=== PATIENT | male | born 1950 | race Two or more races ===

== ENCOUNTER → 2017-08-15 09:57 | Outpatient (CLI) | payer OTHER | END | disposition home or self-care (01) | LOC: LAB 09:57 | DX: N40.0 Benign prostatic hyperplasia without lower urinary tract symptoms (principal); F52.21 Male erectile disorder; E29.0 Testicular hyperfunction; E11.65 Type 2 diabetes mellitus with hyperglycemia ==

== ENCOUNTER 2018-07-17 12:18 | Outpatient (CLI) | payer OTHER | END 2018-07-17 12:29 | disposition home or self-care (01) | LOC: LAB 12:18 | DX: E11.65 Type 2 diabetes mellitus with hyperglycemia (principal); E78.00 Pure hypercholesterolemia, unspecified; N40.0 Benign prostatic hyperplasia without lower urinary tract symptoms; F52.21 Male erectile disorder; E29.1 Testicular hypofunction; E22.1 Hyperprolactinemia; I11.9 Hypertensive heart disease without heart failure; E78.2 Mixed hyperlipidemia; E11.9 Type 2 diabetes mellitus without complications; E78.49 Other hyperlipidemia ==

== ENCOUNTER 2018-10-19 14:16 | Outpatient (CLI) | payer OTHER | END 2018-10-19 16:04 | disposition home or self-care (01) | LOC: LAB 14:16 | DX: I11.9 Hypertensive heart disease without heart failure (principal); E11.9 Type 2 diabetes mellitus without complications; E78.00 Pure hypercholesterolemia, unspecified; E11.65 Type 2 diabetes mellitus with hyperglycemia ==

== ENCOUNTER 2018-12-07 07:27 | Outpatient (CLI) | payer OTHER | END 2018-12-07 07:40 | disposition home or self-care (01) | LOC: LAB 07:27 | DX: E83.42 Hypomagnesemia (principal); M13.80 Other specified arthritis, unspecified site; I63.131 Cerebral infarction due to embolism of right carotid artery; E72.10 Disorders of sulfur-bearing amino-acid metabolism, unspecified; I11.9 Hypertensive heart disease without heart failure ==

== ENCOUNTER 2019-01-13 08:23 | Outpatient (CLI) | payer OTHER | END 2019-01-13 08:35 | disposition home or self-care (01) | LOC: LAB 08:23 | DX: E29.1 Testicular hypofunction (principal); R97.20 Elevated prostate specific antigen [PSA]; R31.9 Hematuria, unspecified; R73.09 Other abnormal glucose ==

== ENCOUNTER 2021-05-25 13:22 | Outpatient (CLI) | payer OTHER | END 2021-05-25 13:23 | disposition home or self-care (01) | LOC: NUCLEAR 13:22 | PROVIDERS: ATTEND Internal Medicine Cardiovascular Disease | DX: I50.1 Left ventricular failure, unspecified (principal) | CPT/HCPCS: 78472; 78496; A9560 ==

== ENCOUNTER → 2022-09-05 | Outpatient (CLI) | payer OTHER | END | disposition home or self-care (01) | LOC: NUCLEAR 08:37 | PROVIDERS: ATTEND Internal Medicine Cardiovascular Disease | DX: I42.0 Dilated cardiomyopathy (principal) | CPT/HCPCS: 78472; A9560 ==

== ENCOUNTER 2022-09-10 14:37 | Outpatient (CLI) | payer OTHER | END 2022-09-10 14:38 | disposition home or self-care (01) | LOC: LAB 14:37 | PROVIDERS: ATTEND Internal Medicine Cardiovascular Disease | DX: I11.9 Hypertensive heart disease without heart failure (principal); E78.1 Pure hyperglyceridemia; E03.8 Other specified hypothyroidism; E11.8 Type 2 diabetes mellitus with unspecified complications; N40.1 Benign prostatic hyperplasia with lower urinary tract symptoms ==